=== PATIENT | male | born 1945 | race Caucasian/White ===

== ENCOUNTER 2016-10-13 13:15 | Emergency (ER) ==
[2016-10-13] MEDS ORDERED: CLEOCIN 600 MG in SODIUM CHLORIDE 100 ML IV STA (13:18)
[2016-10-13 13:21] VITALS: BP 110/64; TEMP 97.5; BMI 29.3
[2016-10-13] MEDS ORDERED: CLEOCIN ONE (13:39)
[2016-10-13 13:46] LABS: BASOPHILS # (AUTO) 0.1 K/uL (0-0.2); BASOPHILS % (AUTO) 0.7 % (0.0-3.0); EOSINOPHILS # (AUTO) 0.3 K/ul (0.0-0.7); EOSINOPHILS % (AUTO) 3.8 % (0.0-7.0); HEMATOCRIT 39.8 % (42.0-52.0); HEMOGLOBIN 13.7 g/dl (14.0-18.0); IMMATURE GRANULOCYTE % (AUTO) 0.3 % (0.0-5.0); LYMPHOCYTES # (AUTO) 1.1 K/uL (0.60-3.4); LYMPHOCYTES % (AUTO) 16.6 (10.0-50.0); MEAN CORPUSCULAR HEMOGLOBIN 33.3 pg (27.0-31.0); MEAN CORPUSCULAR HGB CONC 34.4 (31.8-35.4); MEAN CORPUSCULAR VOLUME 96.8 fl (80.0-94.0); MONOCYTES # (AUTO) 0.5 K/uL (0.4-2.0); MONOCYTES % (AUTO) 7.2 (0-10); NEUTROPHILS # (AUTO) 4.9 K/ul (2.0-6.9); NEUTROPHILS % (AUTO) 71.4; PLATELET COUNT 191 10^3/uL (140-440); RED BLOOD COUNT 4.11 10^6/ul (4.70-6.10); WHITE BLOOD COUNT 6.81 K/ul (4.2-10.2)
--- NOTE | 2016-10-13 14:18 | US ---
EXAM: Right lower extremity venous doppler. HISTORY: Right leg pain and swelling. COMPARISON: None available. TECHNIQUE: Multiple grayscale and color doppler images were obtained. FINDINGS: There is normal flow, compressibility and augmentation of flow within the right common fe moral, greater saphenous, profunda, femoral, popliteal, posterior tibial, anterior tibial and perone al veins. IMPRESSION: No evidence for right lower extremity deep vein thrombosis at the levels examined.
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
== END 2016-10-13 15:35 | disposition home or self-care (01) ==
LOC: ED 13:15
DX: L03.115 Cellulitis of right lower limb (principal); V89.2XXA Person injured in unspecified motor-vehicle accident, traffic, initial encounter
CPT/HCPCS: 36415; 85025; 96365; 99283